=== PATIENT | female | born 1990 | race Caucasian/White ===

== ENCOUNTER 2024-05-22 14:36 | Outpatient (CLI) | payer OTHER, SELFPAY ==
--- NOTE | ~2024-05-22 | MR_ITS ---
MRI of the brain Clinical History: Elevated prolactin level Technique: Axial and sagittal T1-weighted images were acquired. These were followed by axial T2-weigh [place], diffusion weighted, gradient, and FLAIR images. Following intravenous administration of 14 cc Mu ltiHance gadolinium, T1-weighted fat-sat imaging was performed in the axial, coronal, and sagittal pl anes. Findings: No abnormal signal seen in the brain parenchyma. No acute infarct or intracranial hemorrhag e. Ventricles and subarachnoid spaces are unremarkable. Orbits are unremarkable. Paranasal sinuses and m astoid air cells are clear. Major intracranial flow voids are intact. There is diffuse enlargement and enhancement of the pituitary gland, most compatible with macroadenom a, measuring 1.6 x 1.6 x 1.4 cm in overall extent. Lesion extends just into the suprasellar cistern, and abuts the optic chiasm. No other abnormal postcontrast enhancement seen. Cerebellar tonsils appear to extend 11 mm below the foramen magnum, compatible with Chiari I malformation. 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 Reviewed, dictated and finalized at location M.
== END 2024-05-22 14:37 | disposition home or self-care (01) ==
LOC: MICIMG 14:37
PROVIDERS: PCP Nurse Practitioner Family; Visit Provider Nurse Practitioner Family
DX: D35.2 Benign neoplasm of pituitary gland (principal); G93.5 Compression of brain; R79.89 Other specified abnormal findings of blood chemistry
CPT/HCPCS: 70553; A9577